=== PATIENT | male | born 1945 | race Caucasian/White ===

== ENCOUNTER 2018-03-25 14:36 | Emergency (ER) | payer MEDICARE ==
[2018-03-25 14:57] VITALS: BP 136/76
--- NOTE | 2018-03-25 14:59 | UC ---
Skin Complaint HPI - HPI Summary HPI Summary: 72 male presents with tick bite to left groin noticed this morning. He says he is confident it wasnt on him last night when he took a shower. He was able to remove the tick with tweezers and has it with him today. Tick is not engorged. - History of Current Complaint Chief Complaint: [facility] Time Seen by Provider: 03/25/18 14:59 Stated Complaint: TICK BITE Hx Obtained From: Patient Current Severity: None Pain Intensity: 0 - Allergy/Home Medications Allergies/Adverse Reactions: Allergies Allergy/AdvReac Type Severity Reaction Status Date / Time No Known Allergies Allergy Verified 03/25/18 14:57 Review of Systems Constitutional: Negative Skin: Other - Tick bite left groin Respiratory: Negative Cardiovascular: Negative Neurovascular: Negative Neurological: Negative Psychological: Negative All Other Systems Reviewed And Are Negative: Yes PMH/Surg Hx/FS Hx/Imm Hx Previously Healthy: Yes Endocrine History: Hypothyroidism - Surgical History Surgical History: Yes Surgery Procedure, Year, and Place: right elbow and toe amputaion - Family History Known Family History: Positive: None - Social History Occupation: Retired Lives: With Family Alcohol Use: Rare Substance Use Type: None Smoking Status (MU): Former Smoker Physical Exam - Summary Physical Exam Summary: GENERAL: NAD. WDWN. No pain distress. SKIN: Left groin: there is a 5mm diameter of mild erythema and edema with central 1mm area of superficial skin loss. No streaking, bleeding, or drainage. NECK: Supple. Nontender. No lymphadenopathy. CHEST: No accessory muscle use. Breathing comfortably and in no distress. CV: RRR. Without m/r/g. NEURO: Alert. CN II-XII grossly intact. PSYCH: Age appropriate behavior. Triage Information Reviewed: Yes Vital Signs: Initial Vital Signs Temp 97.8 F 03/25/18 14:53 Pulse 65 03/25/18 14:53 Resp 16 03/25/18 14:53 BP 136/76 03/25/18 14:53 Pulse Ox 100 03/25/18 14:53 Course/Dx - Course Course Of Treatment: Tick bite left groin <24hours attached and not engorged. No treatment indicated - Diagnoses Provider Diagnoses: Tick bite left groin Discharge - Sign-Out/Discharge Documenting (check all that apply): Discharge/Admit/Transfer - Discharge Plan Condition: Stable Disposition: HOME Patient Education Materials: Tick Bite (ED) Referrals: Celestino Nathan MD [Primary Care Provider] - Additional Instructions: If you develop a fever, shortness of breath, chest pain, new or worsening symptoms - please call your PCP or go to the ED. TICK BITE: You have been bitten by a tick. Once the tick is removed, these "bites" usually cause no problems. Tick fever, tick paralysis, [place] Spotted fever, and Lyme disease are uncommon -- but you should mention this tick bite to your doctor if you develop unusual symptoms in the next several weeks. If you develop any of the following, please see your physician promptly: (1) Fever, chills, or generalized malaise associated with a headache. (2) A red round area at the site of the bite (or elsewhere) (3) Joint pain, joint swelling or generalized weakness. (4) Redness, swelling, or drainage at the site of the bite. - Billing Disposition and Condition Condition: STABLE Disposition: Home
== END 2018-03-25 15:11 | disposition home or self-care (01) ==
LOC: UCEAST 14:36
DX: S30.861A Insect bite (nonvenomous) of abdominal wall, initial encounter (principal); Z87.891 Personal history of nicotine dependence
CPT/HCPCS: 99211; G0463